=== PATIENT | female | born 1945 | race Caucasian/White ===

== ENCOUNTER 2020-01-25 14:01 | Outpatient (CLI) | payer MEDICARE, OTHER ==
[~2020-01-25] VITALS: Ht 162.6 cm; Wt 65.8 kg
[~2020-01-25 14:01] MED LIST: ACYC-202 PO; ASCO500C15 PO; ASPI-1264 PO; CHOL100046 PO; CYAN100019 PO; DEC4T PO; FERR325T28 PO; LENA25CA PO; MAGN400C PO; OSC500T PO; POTA8TAB8 PO; TUMERIC; [UNRECOGNIZED DRUG - CODE]; [UNRECOGNIZED DRUG - OTHER]; [UNRECOGNIZED DRUG - OTHER]
[2020-01-25 14:35] LABS: TOTAL HEMOGLOBIN 11.7 G/dl (12.0-16.0)
[2020-01-25] MEDS ORDERED: albuterol 2.5 MG/3 ML nebule NEB ONE (14:55)
== END 2020-01-25 23:59 | disposition home or self-care (01) ==
LOC: RT 14:01
PROVIDERS: ATTEND Internal Medicine Pulmonary Disease
DX: J44.9 Chronic obstructive pulmonary disease, unspecified (principal)
CPT/HCPCS: 85018; 94010; 94727; 94729